=== PATIENT | male | born 1990 | race Hispanic/Latino ===

== ENCOUNTER 2017-11-03 18:22 | Emergency (ER) | payer OTHER ==
[2017-11-03 18:22] VITALS: BMI 26.6
[2017-11-03 19:00] VITALS: TEMP 98
[2017-11-03] MEDS ORDERED: Sodium Chloride 0.9% 1,000 ML IV STA (19:06)
--- NOTE | 2017-11-03 19:13 | ED PDOC ---
Arrival/HPI - General Chief Complaint: Dizziness/Lightheaded Time Seen by Provider: 11/03/17 19:06 Historian: Patient - History of Present Illness Narrative History of Present Illness (Text): Patient is a 26 year old male with a past medical history of anxiety and OCD presenting to the emergency room with a complaint of vomiting and weakness. Patient had one shot of alcohol last night and woke up with a headache and feeling of dizziness. He reports a history of being extremely sensitive to He took some Tylenol and started to feel better. Later in the afternoon he ate some pizza and started to feel sick again. He vomited undigested food. The dizziness returned shortly after and intensified compared to this morning. He is currently feeling much better with the dizziness improving. Patient has no complaints at this other than a mild headache. Denies fevers, chills, diarrhea, constipation, chest pain, shortness of breath, abdominal pain, numbness or tingling. Time/Duration: 24 hours (less than) Symptom Onset: Gradual Symptom Course: Resolved Quality: Unable to Describe Past Medical History - Provider Review Nursing Documentation Reviewed: Yes - Infectious Disease Hx of Infectious Diseases: None - Tetanus Immunization Tetanus Immunization: Up to Date - Past Medical History Past Medical History: No Previous - Psychiatric Hx Anxiety: Yes Hx Substance Use: No Other/Comment: OCD - Past Surgical History Past Surgical History: No Previous - Anesthesia Hx Anesthesia: No - Suicidal Assessment Feels Threatened In Home Enviroment: No Family/Social History - Physician Review Nursing Documentation Reviewed: Yes Family/Social History: Unknown Family HX Smoking Status: Unknown If Ever Smoked Hx Alcohol Use: No Hx Substance Use: No Hx Substance Use Treatment: No Allergies/Home Meds Allergies/Adverse Reactions: Allergies No Known Allergies Allergy (Verified 09/24/14 22:56) Home Medications: Home Meds Medication Instructions Recorded Confirmed No Known Home Med 11/03/17 11/03/17 Physical Exam Vital Signs Reviewed: Yes Vital Signs Temp Pulse Resp BP Pulse Ox 11/03/17 18:54 98 F 98 H 18 147/80 99 Temperature: Afebrile Blood Pressure: Normal Pulse: Regular Respiratory Rate: Normal Appearance: Positive for: Well-Appearing, Non-Toxic, Comfortable Pain Distress: None Mental Status: Positive for: Alert and Oriented X 3 - Systems Exam Head: Present: Atraumatic, Normocephalic. No: Tenderness, Contusion Pupils: Present: PERRL Extroacular Muscles: Present: EOMI Conjunctiva: Present: Normal Mouth: Present: Moist Mucous Membranes Pharnyx: Present: Normal. No: ERYTHEMA, EXUDATE, TONSILS ENLARGED Nose (External): Present: Atraumatic Nose (Internal): Present: Normal Inspection, No Active Bleeding, Moist Neck: Present: Normal Range of Motion Respiratory/Chest: Present: Clear to Auscultation, Good Air Exchange. No: Respiratory Distress, Accessory Muscle Use Cardiovascular: Present: Regular Rate and Rhythm, Normal S1, S2. No: Murmurs Abdomen: No: Tenderness, Distention, Peritoneal Signs Back: Present: Normal Inspection Upper Extremity: Present: Normal Inspection. No: Cyanosis, Edema Lower Extremity: Present: Normal Inspection. No: Edema Neurological: Present: GCS=15, CN II-XII Intact, Speech Normal, Motor Func Grossly Intact, Normal Sensory Function, Normal Cerebellar Funct, Gait Normal, Memory Normal Skin: Present: Warm, Dry, Normal Color. No: Rashes Lymphatic: No: Cervical Adenopathy Psychiatric: Present: Alert, Oriented x 3, Normal Insight, Normal Concentration , Anxious. No: Agitated, Depressed Mood Medical Decision Making ED Course and Treatment: Anxious appearing male, resting comfortably in bed. No acute complaints at this time other than a mild headache. No lab testing indicated at this time. NS 1L bolus Reglan and Toradol 11/03/17 20:26 Patient is resting comfortably. His headache is much improved and still has no dizziness. He is feel well and states he does not know what happened earlier. Patient was given crackers and water which he tolerated without feeling nauseous or vomiting. He is to be discharged home and instructed to follow up with his primary care physician within 2-3 days. Patient states he understands and agrees. He is to take Tylenol or ibuprofen for headaches. Re-evaluation Time: 20:26 Reassessment Condition: Improved - Medication Orders Current Medication Orders: Discontinued Medications Sodium Chloride (Sodium Chloride 0.9%) 1,000 mls @ 999 mls/hr IV .Q1H1M STA Stop: 11/03/17 20:06 Last Admin: 11/03/17 19:21 Dose: 999 mls/hr eMAR Start Stop Document 11/03/17 19:21 RD (Rec: 11/03/17 19:21 RD [id number]) Intravenous Solution Start Date 11/03/17 Start Time 19:21 End Date 11/03/17 End time 20:21 Total Infusion Time 60 Ketorolac Tromethamine (Toradol) 30 mg IVP STAT STA Stop: 11/03/17 19:07 Last Admin: 11/03/17 19:21 Dose: 30 mg MAR Pain Assessment Document 11/03/17 19:21 RD (Rec: 11/03/17 19:21 RD [id number]) Pain Reassessment Is this a pain reassessment? No Sleep Is patient sleeping during reassessment? No Presence of Pain Presence of Pain Yes IVP Administration Document 11/03/17 19:21 RD (Rec: 11/03/17 19:21 RD [id number]) Charges for Administration # of IVP Administrations 1 Metoclopramide HCl (Reglan) 10 mg IVP STAT STA Stop: 11/03/17 19:07 Last Admin: 11/03/17 19:18 Dose: 10 mg IVP Administration Document 11/03/17 19:18 RD (Rec: 11/03/17 19:20 RD [id number]) Charges for Administration # of IVP Administrations 1 Disposition/Present on Arrival - Present on Arrival Any Indicators Present on Arrival: No History of DVT/PE: No History of Uncontrolled Diabetes: No Urinary Catheter: No History of Decub. Ulcer: No History Surgical Site Infection Following: None - Disposition Have Diagnosis and Disposition been Completed?: Yes Diagnosis: Dizziness, Nausea & vomiting Disposition: HOME/ ROUTINE Disposition Time: 20:28 Patient Plan: Discharge Patient Problems: Current Active Problems Problem Status Onset Dizziness Acute Nausea & vomiting Acute Condition: IMPROVED Discharge Instructions (ExitCare): Nausea and Vomiting, Adult (DC), Dizziness, Nonvertigo, (DC) Additional Instructions: Patient is to follow up with his primary care physician within 2-3 days for follow up care and management. Forms: [employer] (Sami)
[2017-11-03 21:00] VITALS: BP 123/70; PULSE 90; RESP 19; O2SAT 100
== END 2017-11-03 20:35 | disposition home or self-care (01) ==
LOC: ED 18:22
DX: R42 Dizziness and giddiness (principal); R11.2 Nausea with vomiting, unspecified
CPT/HCPCS: 96361; 96374; 99285; J1885; J2765; J7030